=== PATIENT | female | born 1950 | race Caucasian/White ===

== ENCOUNTER → 2019-03-25 | Outpatient (CLI) | payer MEDICARE | END | disposition home or self-care (01) | LOC: LAB SHORT 19:06 → LAB 19:06 | PROVIDERS: Family Medicine | DX: Z12.4 Encounter for screening for malignant neoplasm of cervix (principal) | CPT/HCPCS: G0145 ==

== ENCOUNTER → 2020-07-08 | Outpatient (CLI) | payer MEDICARE | LOC: LAB SHORT 07:42 → PLD 07:42 | DX: L30.8 Other specified dermatitis (principal) | CPT/HCPCS: 88312 ==

== ENCOUNTER → 2022-07-06 | Outpatient (CLI) | payer MEDICARE | END | disposition home or self-care (01) | LOC: LAB 16:03 → LAB SHORT 16:03 | PROVIDERS: Family Medicine | DX: Z12.4 Encounter for screening for malignant neoplasm of cervix (principal) | CPT/HCPCS: G0145 ==

== ENCOUNTER → 2023-07-31 | Outpatient (CLI) | payer MEDICARE | END | disposition home or self-care (01) | LOC: LAB 11:45 → LAB SHORT 11:45 | DX: N39.0 Urinary tract infection, site not specified (principal) | CPT/HCPCS: 87077; 87086; 87186 ==

== ENCOUNTER 2025-10-29 07:17 | Day surgery (SDC) | payer MEDICARE ==
[~2025-10-29] VITALS: Ht 162.6 cm; Wt 77.5 kg
[~2025-10-29 07:17] MED LIST: BUPR75 PO; Balanced Salt Epinephrine Irrigation Solution 500 mL IR SCH; Moxifloxacin HCL 0.5 MG/0.1 ML 0.4MLSYR LEFTEYE SCH; Ondansetron 4 MG SoluTab MM PRN; PHENYLEPHRINE\\TROPICAMIDE\\TETRACAINE OPHTHALMIC DILATING SOLN LEFTEYE PRN; Povidone-Iodine 450 DROP/30 ML Solution LEFTEYE SCH; Povidone-Iodine 450 DROP/30 ML Solution ONE; ROSUVASTATIN CA20 MG PO; SULTRIDS PO; Seroquel Xr50 MG PO; Tetracaine HCl/Pf 0.5% Opth Soln 4 ml ONE; Triamcinolone Inj Susp 40 MG / ML 1ML Vial INJ SCH; Triamcinolone Inj Susp 40 MG / ML 1ML Vial ONE; VENL25 PO
--- NOTE | 2025-10-29 08:17 | NUR ---
10/29/25 0817 Ade Grant PT REPORTED ANXIETY LEVEL WAS 3/10 PRIOR TO ADMINISTRATION OF VALIUM 0805. SPO2 AND HR MONITORING IN PLACE. TETRACAINE IN AT 0807. PLEDGETT IN AT 0808. CALL LIGHT IN PT'S HAND.
[2025-10-29] MEDS ORDERED: Tetracaine HCl 0.5% Opth Soln 15 ml LEFTEYE ONE (08:50)
--- NOTE | 2025-10-29 08:50 | NUR ---
10/29/25 0850 Marry Cagle 72 HR 96% O2 134/82 BP 16 RR
[2025-10-29 09:15] VITALS: BP 112/68
== END 2025-10-29 09:22 | disposition home or self-care (01) ==
LOC: ORSCSDS 07:17
PROVIDERS: Ophthalmology
PROC: 08RK3JZ Replacement of Left Lens with Synthetic Substitute, Percutaneous Approach (ICD-10-PCS; principal; 2025-10-29 09:00)
DX: H25.812 Combined forms of age-related cataract, left eye (principal)
CPT/HCPCS: A9270; J2003; J3301; V2632

== ENCOUNTER 2025-11-05 07:30 | Day surgery (SDC) | payer MEDICARE ==
[~2025-11-05] VITALS: Ht 162.6 cm; Wt 77.8 kg
[~2025-11-05 07:30] MED LIST changes: -Moxifloxacin HCL 0.5 MG/0.1 ML 0.4MLSYR LEFTEYE SCH; +Moxifloxacin HCL 0.5 MG/0.1 ML 0.4MLSYR RIGHTEYE SCH; -PHENYLEPHRINE\\TROPICAMIDE\\TETRACAINE OPHTHALMIC DILATING SOLN LEFTEYE PRN; +PHENYLEPHRINE\\TROPICAMIDE\\TETRACAINE OPHTHALMIC DILATING SOLN RIGHTEYE PRN; -Povidone-Iodine 450 DROP/30 ML Solution LEFTEYE SCH; +Povidone-Iodine 450 DROP/30 ML Solution RIGHTEYE SCH
[2025-11-05] MEDS ORDERED: Tetracaine HCl 0.5% Opth Soln 15 ml RIGHTEYE ONE (08:49)
--- NOTE | 2025-11-05 08:49 | NUR ---
11/05/25 0849 Marry Cagle 71 HR 100% O2 129/79BP 16 RR
[2025-11-05 09:04] VITALS: BP 127/87
== END 2025-11-05 09:14 | disposition home or self-care (01) ==
LOC: ORSCSDS 07:30
PROVIDERS: Ophthalmology
PROC: 08RJ3JZ Replacement of Right Lens with Synthetic Substitute, Percutaneous Approach (ICD-10-PCS; principal; 2025-11-05 09:00)
DX: H25.811 Combined forms of age-related cataract, right eye (principal); Z96.1 Presence of intraocular lens
CPT/HCPCS: A9270; J2003; J3301; V2632